=== PATIENT | male | born 1955 | race Two or more races ===

== ENCOUNTER 2025-04-24 11:41 | Inpatient (IN) | payer OTHER ==
[~2025-04-24] VITALS: Ht 165.1 cm; Wt 98.4 kg
--- NOTE | 2025-04-24 12:24 | ECG ---
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
--- NOTE | 2025-04-24 12:26 | ED.PDOC ---
History of Present Illness HPI Comments 69y F who presents to the ED for chief complaint of multiple complaints. Pt states he has been having elevated blood sugar values at home despite being complaint with his DM medications. Pt states he checked his accu check today and notes it was 289 and came to the ED. Pt in the ED, has been having chest pain for the past 1-2 week. Pt states the pain is located center of chest but favoring the L side of chest, pressure like pain, non-radiating, with no associated exacerbating or relieving factors. Pt has associated chills but otherwise denies any other symptoms. Pt otherwise states he is from [place] and is here for and states he has been taking his DM medications. Pt did state his PCP changed his DM medications 2 months prior due to prior medications causing side effects. Pt otherwise has accu check of 289 in the ED. Pt otherwise denies any other symptoms at this time. Chief Complaint: Hyperglycemia Time Seen by MD: 12:23 Reviewed Notes: Nurses Notes, Medications, Allergies Allergies: Coded Allergies: NO KNOWN ALLERGIES (Unverified , 04/24/25) Information Source: Patient Mode of Arrival: Ambulatory Severity: Moderate Timing: Hours Duration: Since onset Prehospital treatment: Treatment (DM medications) Medication Refill: For: Diabetes Past Medical History PAST MEDICAL HISTORY: DM, High Lipids, HTN Surgical History: Hernia Repair Family History Family History: Family hx of DM, Family hx of heart saleem Social History Smoker: Cigarettes Alcohol: Occasionally Drugs: Denies Drug Use Lives In: Home Constitutional: reports: chills, malaise, weakness; denies: diaphoresis, fatigue, fever, sweats, others EENTM: denies: blurred vision, double vision, ear bleeding, ear discharge, ear drainage, ear pain, ear ringing, eye pain, eye redness, hearing loss, mouth pain, mouth swelling, nasal discharge, nose bleeding, nose congestion, nose pain, photophobia, tearing, throat pain, throat swelling, voice changes, others Respiratory: denies: cough, hemoptysis, orthopnea, SOB at rest, shortness of breath, SOB with excertion, stridor, wheezing, others Cardiovascular: reports: chest pain; denies: dizzy spells, diaphoresis, Dyspnea on exertion, edema, irregular heart beat, left arm pain, lightheadedness, palpitations, PND, syncope, others Gastrointestinal: denies: abdomen distended, abdominal pain, blood streaked bowels, constipated, diarrhea, dysphagia, difficulty swallowing, hematemesis, melena, nausea, poor appetite, poor fluid intake, rectal bleeding, rectal pain, vomiting, others Genitourinary: denies: burning, dysuria, flank pain, frequency, hematuria, incontinence, penile discharge, penile sore, pain, testicle pain, testicle swelling, urgency, others Neurological: denies: dizziness, fainting, headache, left sided numbness, left sided weakness, numbness, paresthesia, pre-existing deficit, right sided numbness, right sided weakness, seizure, speech problems, tingling, tremors, weakness, others Musculoskeletal: denies: back pain, gout, joint pain, joint swelling, muscle pain, muscle stiffness, neck pain, others Integumetry: denies: bruises, change in color, change in hair/nails, dryness, laceration, lesions, lumps, rash, wounds, others Allergic/Immunocompromised: denies: Difficulty Healing, Frequent Infections, Hives, Itching, others Hematologic/Lymphatic: denies: anemia, blood clots, easy bleeding, easy bruising, swollen glands, others Endocrine: reports: excessive thirst; denies: excessive hunger, excessive sweating, excessive urination, flushing, intolerance to cold, intolerance to heat, unexplained weight gain, unexplained weight loss, others Psychiatric: denies: anxiety, bipolar disorder, depression, hopeless, panic disorder, schizophrenia, sleepless, suicidal, others All Other Systems: Reviewed and Negative Physical Exam General Appearance: Moderate Distress HEENT: Normal ENT Inspection, Pharynx Normal, TMs Normal Neck: Full Range of Motion, Non-Tender, Normal, Normal Inspection Respiratory: Chest Non-Tender, Lungs Clear, No Accessory Muscle Use, No Respiratory Distress, Normal Breath Sounds Cardiovascular: No Edema, No JVD, No Murmur, No Gallop, Tachycardia Breast Exam: Deferred Gastrointestinal: No Organomegaly, Non Tender, No Pulsatile Mass, Normal Bowel Sounds, Soft Genitalia: Deferred Pelvic: Deferred Rectal: Deferred Extremities: No calf tenderness, Normal capillary refill, No pedal edema Musculoskeletal : Apperance: Normal Neurologic: Alert, weaver needle loom II-XII nml as Tested, Motor Weakness, Normal Affect, Normal Mood, No Sensory Deficits Cerebellar Function: Normal Reflexes: Normal Skin: Dry, Normal Color, Warm Lymphatic: No Adenopathy Was a procedure done? Was a procedure done?: No EKG EKG : Pulse Rate (adult): 113 [place]: Normal Cardiac Rhythm: ST Block: None Hypertrophy: LAE ST: Normal Differential Dx Considerations may include: hyperglycemia, DKA, uncontrolled DM, X-Ray, Labs, Meds, VS Vital Signs Date Time Temp Pulse Resp B/P (MAP) Pulse Ox O2 Delivery O2 Flow Rate FiO2 04/24/25 19:44 100.1 104 20 111/62 (78) 91 100.1 04/24/25 16:30 99.5 99 18 91/57 (68) 92 99.5 04/24/25 14:13 104 18 93 Room Air 04/24/25 14:13 100.1 104 18 95/53 (67) 93 100.1 04/24/25 12:26 113 04/24/25 12:11 113 04/24/25 12:07 98.9 120 18 101/49 (66) 92 98.9 Lab Test 04/24/25 17:30 04/24/25 16:30 04/24/25 14:51 04/24/25 13:40 Range/Units Lactic Acid Level 1.6 0.4-2.0 mmol/L Troponin I High Sensitivity 8 9 7 </=54 ng/L White Blood Count 19.6 H 4.4-10.8 10^3/uL Red Blood Count 5.57 4.5-5.90 10^6/uL Hemoglobin 16.4 13.5-17.5 g/dL Hematocrit 49.2 41.0-53.0 % Mean Corpuscular Volume 88.3 80.0-100.0 fL Mean Corpuscular Hemoglobin 29.4 28.0-32.0 pg Mean Corpuscular Hemoglobin Concent 33.3 32.0-36.0 g/dL Red Cell Distribution Width 14.5 H 11.8-14.3 % Platelet Count 233 140-450 10^3/uL Mean Platelet Volume 7.1 6.9-10.8 fL Neutrophils (%) (Auto) 87.7 H 37.0-80.0 % Lymphocytes (%) (Auto) 6.3 L 10.0-50.0 % Monocytes (%) (Auto) 5.5 0.0-12.0 % Eosinophils (%) (Auto) 0.0 0.0-7.0 % Basophils (%) (Auto) 0.5 0.0-2.0 % Neutrophils # (Auto) 17.2 H 1.6-8.6 10 ^3/uL Lymphocytes # (Auto) 1.2 0.4-5.4 10 ^3/uL Monocytes # (Auto) 1.1 0-1.3 10 ^3/uL Eosinophils # (Auto) 0 0-0.8 10 ^3/uL Basophils # (Auto) 0.1 0-0.2 10 ^3/uL Nucleated Red Blood Cells 0.1 % Sodium Level 133 L 136-145 mmol/L Potassium Level 3.7 3.5-5.1 mmol/L Chloride Level 96 L 98-107 mmol/L Carbon Dioxide Level 24 20-31 mmol/L Anion Gap 13 5-15 Blood Urea Nitrogen 37 H 9-23 mg/dL Creatinine 2.16 H 0.700-1.30 mg/dL Glomerular Filtration Rate Calc 33 >90 mL/min BUN/Creatinine Ratio 17.1 10.0-20.0 Serum Glucose 252 H 74-106 mg/dL Calcium Level 8.1 L 8.7-10.4 mg/dL Test 04/24/25 12:07 Range/Units Urine Color Light-orange Yellow Urine Clarity Clear Clear Urine pH 6.0 5.0-9.0 Urine Specific [place] 1.029 1.001-1.035 Urine Protein 2+ H Negative Urine Ketones Trace Negative Urine Blood 2+ H Negative /uL Urine Nitrite Negative Negative Urine Bilirubin Negative Negative Urine Urobilinogen Normal Negative mg/dL Urine Leukocyte Esterase Negative Negative /uL Urine RBC 1 0 - 3 /hpf Urine Microscopic WBC 3 0-3 /HPF Urine Squamous Epithelial Cells Few <5 /hpf Urine Bacteria None seen None Seen /hpf Urine Granular Casts Mod 0 /lpf Urine Mucus Few None Seen Urine Glucose 4+ H Normal mg/dL Current Medications Medications (Trade) Dose Ordered Sig/Monica Route Start Time Stop Time Status Last Admin Sodium Chloride 500 ml @ 500 mls/hr Q1H ONCE IV 04/24/25 12:30 04/24/25 13:29 DC 04/24/25 12:33 Aspirin 162 mg ONCE ONCE PO 04/24/25 12:30 04/24/25 12:31 DC 04/24/25 12:36 Sodium Chloride 1,850 ml @ 1,850 mls/hr ONCE ONCE IV 04/24/25 17:00 04/24/25 17:59 DC 04/24/25 19:55 Ceftriaxone Sodium 50 ml @ 100 mls/hr ONCE ONCE IV 04/24/25 17:00 04/24/25 17:29 DC 04/24/25 19:57 Vancomycin HCl 200 ml @ 200 mls/hr ONCE ONCE IV 04/24/25 17:00 04/24/25 17:59 DC 04/24/25 19:57 EXAM: XY CHEST TWO VIEWS ROUTINE IMPRESSION: Bilateral lung base infiltrates and effusions likely due to multifocal pneumonia. Time of 1ST Reevaluation: 13:05 Reevaluation 1ST: Unchanged Patient Education/Counseling: Diagnosis, Treatment, Prognosis Family Education/Counseling: No Family Present SEPSIS Sepsis Screen Physician Orders Chest Two Views Routine (04/24/25 12:21) Heplock Iv (04/24/25 12:21) Marklogic Developer (04/24/25 12:21) Blood Pressure (04/24/25 12:21) Pulse Oximetry (04/24/25 12:21) Electrocardigram (04/24/25 13:21) Electrocardigram (04/24/25 15:21) Blood Culture (04/24/25 16:56) Vital Signs Date Time Temp Pulse Resp B/P (MAP) Pulse Ox O2 Delivery O2 Flow Rate FiO2 04/24/25 19:44 100.1 104 20 111/62 (78) 91 100.1 04/24/25 16:30 99.5 99 18 91/57 (68) 92 99.5 04/24/25 14:13 104 18 93 Room Air 04/24/25 14:13 100.1 104 18 95/53 (67) 93 100.1 04/24/25 12:26 113 04/24/25 12:11 113 04/24/25 12:07 98.9 120 18 101/49 (66) 92 98.9 Laboratory Tests Test 04/24/25 13:40 04/24/25 17:30 White Blood Count 19.6 10^3/uL (4.4-10.8) H Lactic Acid Level 1.6 mmol/L (0.4-2.0) Medications Medications Dose Ordered Sig/Monica Route Start Time Stop Time Status Last Admin Dose Admin Aspirin 162 mg ONCE ONCE PO 04/24/25 12:30 04/24/25 12:31 DC 04/24/25 12:36 Ceftriaxone Sodium 50 ml @ 100 mls/hr ONCE ONCE IV 04/24/25 17:00 04/24/25 17:29 DC 04/24/25 19:57 Sodium Chloride 500 ml @ 500 mls/hr Q1H ONCE IV 04/24/25 12:30 04/24/25 13:29 DC 04/24/25 12:33 Sodium Chloride 1,850 ml @ 1,850 mls/hr ONCE ONCE IV 04/24/25 17:00 04/24/25 17:59 DC 04/24/25 19:55 Vancomycin HCl 200 ml @ 200 mls/hr ONCE ONCE IV 04/24/25 17:00 04/24/25 17:59 DC 04/24/25 19:57 Departure 1 Departure Time of Disposition: 20:59 Impression: Primary Impression: Uncontrolled diabetes mellitus Qualified Codes: E13.65 - Other specified diabetes mellitus with hyperglycemia Disposition: ADMITTED INPATIENT Admit to: Tele Condition: Fair Critical Care Note Critical Care Time?: No Stability Stability form required: Yes Unstable for transfer: Telemetry monitoring (Telemetry monitoring required), ED Physician Assesment (Clinical assesment) Heart Score Heart Score: Heart Score Response (Comments) Value History Slightly Suspicious 0 EKG Normal 0 Age >65 2 Risk Factors >3 or Hx ASHD 2 Troponin N/A 0 Total 4 I personally scribed for JENN HERNÁNDEZ MD ([email or web address]) on 04/24/25 at 12:26. Electronically submitted by Erika Matta ([facility]). I personally scribed for JENN HERNÁNDEZ MD ([email or web address]) on 04/24/25 at 13:41. Electronically submitted by Erika Matta ([facility] [place]). JENN HERNÁNDEZ MD Apr 24, 2025 12:26
[2025-04-24] MEDS: SODIUM CHLORIDE 0.9% 500 ML IV ONE (12:33)
--- NOTE | 2025-04-24 13:28 | DVH ---
EXAM: XY CHEST TWO VIEWS ROUTINE HISTORY: CP COMPARISON: None TECHNIQUE: Frontal and lateral views of the chest were performed. FINDINGS: There are bilateral lung base infiltrates and effusions. No pneumothorax or pulmonary edema. Cardiac margins are obscured. No fractures are identified about the bony thorax. IMPRESSION: Bilateral lung base infiltrates and effusions likely due to multifocal pneumonia.
[2025-04-24 13:37] LABS: Urine Protein, UAD 2+ (Negative)
[2025-04-24 13:56] LABS: Hematocrit 49.2 % (41.0-53.0); Hemoglobin 16.4 g/dL (13.5-17.5); Mean Corpuscular Hemoglobin 29.4 pg (28.0-32.0); Mean Corpuscular Volume 88.3 fL (80.0-100.0); Nucleated Red Blood Cells % 0.1 %
[2025-04-24 13:59] LABS: Potassium 3.7 mmol/L (3.5-5.1)
[2025-04-24 14:00] LABS: Anion Gap 13 (5-15); Calcium 8.1 mg/dL (8.7-10.4); Carbon Dioxide 24 mmol/L (20-31); Chloride 96 mmol/L (98-107); Sodium 133 mmol/L (136-145)
[2025-04-24 14:05] LABS: BUN/Creatinine Ratio 17.1 (10.0-20.0)
[2025-04-24 14:06] LABS: Blood Urea Nitrogen 37 mg/dL (9-23); Glucose 252 mg/dL (74-106)
[2025-04-24] MEDS: SODIUM CHLORIDE 0.9% 1,850 ML IV ONE (19:55)
[2025-04-24] MEDS: cefTRIAXone 1GM/50ML D5W 50 ML IV ONE (19:57)
[2025-04-24] MEDS: VANCOMYCIN 1GM/200ML PM 200 ML IV ONE (19:57)
[2025-04-24] MEDS ORDERED: ONDANSETRON HCL 4 MG/2 ML VIAL IV PRN (21:30)
[2025-04-24] MEDS ORDERED: DEXTROSE (50%) 50ML SYRG IV PRN (21:30)
--- NOTE | 2025-04-24 21:36 | DVHHP2 ---
History of Present Illness Reason for Visit: Shortness of breaths History of Present Illness 69-year-old male presents for evaluation of shortness for breath. Patient reports a one-week history of worsening shortness for breath with associated productive cough with yellow phlegm. He also reports his blood sugars being erratic but for the most part they have been greater than 300. Reports intermittent chills. No chest pain. No other acute complaints reported. Past Medical History Diabetes mellitus, dyslipidemia, hypertension Past Surgical History Hernia repair Family History Heart disease and diabetes mellitus Smoke: <1 pack per day ALCOHOL: occassional Drugs: None Lives: with Family Review of Systems Review of Systems Review of systems are currently negative otherwise addressed in HPI. Allergies: Coded Allergies: NO KNOWN ALLERGIES (Unverified , 04/24/25) Exam Vital Signs Vital Signs Date Time Temp Pulse Resp B/P (MAP) Pulse Ox O2 Delivery O2 Flow Rate FiO2 04/24/25 20:15 Nasal Cannula* 2 28 04/24/25 19:44 100.1 104 20 111/62 (78) 91 100.1 Exam Gen: 69-year-old male in mild distress Skin: Warm, dry, normal color and texture, no rash. HEENT: Normocephalic atraumatic, mucous membranes moist and pink. Neck: Cervical and supraclavicular nodes normal without enlargement, trachea is midline, thyroid gland is normal without masses. Pulmonary: Clear to auscultation and percussion bilaterally. Cardiac: Regular rate and rhythm. No murmur Abdomen: Soft, nontender, nondistended, bowel sounds present all 4 quadrants, no guarding, no rigidity, no organomegaly. Extremities: No cyanosis, clubbing, no edema Neuro: Cranial nerves II through XII grossly intact, normal affect and speech, no focal motor deficits. Labs/Xrays ORDERING PHYSICIAN: JENN HERNÁNDEZ MD PROCEDURE(s): CXR2 - CHEST TWO VIEWS ROUTINE REASON: CP ORDER NUMBER(s): [id number], ACCESSION NUMBER(s): [id number] EXAM: XY CHEST TWO VIEWS ROUTINE HISTORY: CP COMPARISON: None TECHNIQUE: Frontal and lateral views of the chest were performed. FINDINGS: There are bilateral lung base infiltrates and effusions. No pneumothorax or p ulmonary edema. Cardiac margins are obscured. No fractures are identified about the bony thorax. IMPRESSION: Bilateral lung base infiltrates and effusions likely due to multifocal pneumonia. Labs Test 04/24/25 17:30 04/24/25 16:30 04/24/25 13:40 04/24/25 12:07 Range/Units Lactic Acid Level 1.6 0.4-2.0 mmol/L Troponin I High Sensitivity 8 </=54 ng/L White Blood Count 19.6 H 4.4-10.8 10^3/uL Red Blood Count 5.57 4.5-5.90 10^6/uL Hemoglobin 16.4 13.5-17.5 g/dL Hematocrit 49.2 41.0-53.0 % Mean Corpuscular Volume 88.3 80.0-100.0 fL Mean Corpuscular Hemoglobin 29.4 28.0-32.0 pg Mean Corpuscular Hemoglobin Concent 33.3 32.0-36.0 g/dL Red Cell Distribution Width 14.5 H 11.8-14.3 % Platelet Count 233 140-450 10^3/uL Mean Platelet Volume 7.1 6.9-10.8 fL Neutrophils (%) (Auto) 87.7 H 37.0-80.0 % Lymphocytes (%) (Auto) 6.3 L 10.0-50.0 % Monocytes (%) (Auto) 5.5 0.0-12.0 % Eosinophils (%) (Auto) 0.0 0.0-7.0 % Basophils (%) (Auto) 0.5 0.0-2.0 % Neutrophils # (Auto) 17.2 H 1.6-8.6 10 ^3/uL Lymphocytes # (Auto) 1.2 0.4-5.4 10 ^3/uL Monocytes # (Auto) 1.1 0-1.3 10 ^3/uL Eosinophils # (Auto) 0 0-0.8 10 ^3/uL Basophils # (Auto) 0.1 0-0.2 10 ^3/uL Nucleated Red Blood Cells 0.1 % Sodium Level 133 L 136-145 mmol/L Potassium Level 3.7 3.5-5.1 mmol/L Chloride Level 96 L 98-107 mmol/L Carbon Dioxide Level 24 20-31 mmol/L Anion Gap 13 5-15 Blood Urea Nitrogen 37 H 9-23 mg/dL Creatinine 2.16 H 0.700-1.30 mg/dL Glomerular Filtration Rate Calc 33 >90 mL/min BUN/Creatinine Ratio 17.1 10.0-20.0 Serum Glucose 252 H 74-106 mg/dL Calcium Level 8.1 L 8.7-10.4 mg/dL Urine Color Light-orange Yellow Urine Clarity Clear Clear Urine pH 6.0 5.0-9.0 Urine Specific [place] 1.029 1.001-1.035 Urine Protein 2+ H Negative Urine Ketones Trace Negative Urine Blood 2+ H Negative /uL Urine Nitrite Negative Negative Urine Bilirubin Negative Negative Urine Urobilinogen Normal Negative mg/dL Urine Leukocyte Esterase Negative Negative /uL Urine RBC 1 0 - 3 /hpf Urine Microscopic WBC 3 0-3 /HPF Urine Squamous Epithelial Cells Few <5 /hpf Urine Bacteria None seen None Seen /hpf Urine Granular Casts Mod 0 /lpf Urine Mucus Few None Seen Urine Glucose 4+ H Normal mg/dL Assessment/Plan Assessment/Plan Assessment Multifocal pneumonia Chronic kidney disease Diabetes mellitus, uncontrolled Hypertension Plan Admit the patient to Med surge to the hospitalist Rocephin/azithromycin Med nebs Resume home medications Continue treatment per orders. Plan discussed with: Patient My Orders Orders - JARAD HENDERSON Procedure Category Date Status Time Admit ADMIT 04/24/25 Transmitted 19:52 Ceftriaxone Ivpb PHA 04/25/25 Verified Rocephin 09:00 Azithromycin 500mg/ PHA 04/25/25 Verified 250ml (Zithromax 50 10:00 Nifedipine Er PHA 04/25/25 Verified (Procardia Xl 10:00 Atorvastatin (Lipitor) PHA 04/24/25 Verified 22:00 Basic Metabolic Panel LAB 04/25/25 Verified 04:00 Glucose Blood PHA 04/25/25 Verified (Accu-Chek Comfort 00:00 Mild Sliding Scale PHA 04/25/25 Verified Npo - Q6hr 00:00 Dextrose 50% Syringe PHA 04/24/25 Verified 21:30 Renal DIET 04/25/25 Verified Standard(2gna,3gk,Lopho) Breakfast Ondansetron Hcl PHA 04/24/25 Verified (Zofran) 21:30 Complete Blood Count LAB 04/25/25 Verified 04:00 Condition: Stable UMANG 04/24/25 Verified 21:29 Acetaminophen Tablet PHA 04/24/25 Verified (Tylenol Tablet) 21:30 Bedrest With Bathroom UMANG 04/24/25 Verified Privileg 21:29 Date of Service: Apr 24, 2025 Billing Provider: JARAD HENDERSON Common Visit Codes: [id number] INP/OBS CARE (HIGH) JARAD HENDERSON Apr 24, 2025 21:36
[2025-04-24] MEDS ORDERED: ALBUTEROL SULF 2.5 MG/0.5ML(0.5%) NEB SOLN NEB PRN (21:45)
[2025-04-24 22:11] VITALS: BP 111/62; PULSE 99; RESP 20; TEMP 100.1; O2SAT 93
[2025-04-24 22:17] VITALS: BP 119/68; PULSE 97; RESP 18; TEMP 98.2; O2SAT 95
[2025-04-24 22:21] VITALS: BP 119/68; PULSE 94; RESP 18; TEMP 98.2; O2SAT 94
[2025-04-24 22:40] VITALS: BP 119/68; PULSE 94; RESP 18; TEMP 98.2; O2SAT 94
[2025-04-24] MEDS: ACCU-CHEK COMFORT CURVE STRIP VI SCH (23:17)
[2025-04-24] MEDS: InsuLIN REG 1unit/0.01ml Soln (100units/ml) SC SCH (23:17)
[2025-04-24] MEDS: ATORVASTATIN 20 MG TAB PO SCH (23:17)
[2025-04-24 23:30] VITALS: O2SAT 94
[2025-04-25] VITALS (7 sets, daily range): BP systolic 103–144; BP diastolic 58–85; PULSE 97–115; RESP 18–22; TEMP 95.8–99.9; O2SAT 91–100
[2025-04-25 06:48] LABS: Hematocrit 47.5 % (41.0-53.0); Hemoglobin 16.0 g/dL (13.5-17.5); Mean Corpuscular Hemoglobin 29.6 pg (28.0-32.0); Mean Corpuscular Volume 87.8 fL (80.0-100.0); Nucleated Red Blood Cells % 0.0 %
[2025-04-25 07:03] LABS: Anion Gap 12 (5-15); Carbon Dioxide 27 mmol/L (20-31); Sodium 136 mmol/L (136-145)
[2025-04-25 07:09] LABS: BUN/Creatinine Ratio 22.1 (10.0-20.0)
[2025-04-25 07:18] LABS: Blood Urea Nitrogen 36 mg/dL (9-23); Calcium 8.6 mg/dL (8.7-10.4); Chloride 97 mmol/L (98-107); Glucose 177 mg/dL (74-106); Potassium 3.0 mmol/L (3.5-5.1)
[2025-04-25] MEDS: cefTRIAXone 1GM/50ML D5W 50 ML IV SCH (09:12)
[2025-04-25] MEDS: AZITHROMYCIN 500MG/ 250ML 250 ML IV SCH (09:13)
[2025-04-25] MEDS: ENOXAPARIN SOD 40 MG/0.4 ML SYRINGE SC SCH (09:13)
[2025-04-25] MEDS: SODIUM CHLORIDE 0.9% 500 ML IV ONE (09:17)
[2025-04-25] MEDS: POTASSIUM CHL 20 Meq TABLET PO ONE (09:26)
[2025-04-25 13:07] LABS: COVID19 ANTIGEN SOFIA FIA NEGATIVE (NEGATIVE)
[2025-04-25] MEDS: ACETAMINOPHEN 325 MG TAB PO PRN (13:29)
--- NOTE | 2025-04-25 17:53 | DVHPNRES ---
Progress Note Date Seen: Apr 25, 2025 Resident Creating Document: ISHA PETERSON RESIDENT Has the PT tested + for MRSA If YES, has PT been informed?: No Medical Necessity Reason Pt with a Central, PICC or Fol: No Subjective Review of Systems Patient is a 69-year-old male with prior medical history of type 2 diabetes, hypertension, and dyslipidemia, who presented to the ED with chief complaint of elevated blood sugar. Patient stated [place] and and has been in the area for the last 2 months due to a family crisis and for this reason has not been able to see his PCP for management. In the ED, patient began to complain of chest pain, located in center of chest, pressure like pain, non-radiating, with no associated exacerbating or relieving factors. At this time patient stated that for the last 2 weeks he has presented shortness of breath with minimal activity, generalized body aches, malaise, cough, febrile sensation and chills. He denied other symptoms. On evaluation patient was found to be in mild distress, tachycardic and febrile. Twelve lead EKG in ED positives were sinus tachycardia and troponins negative. Labs Show WBC at 19.6, lactic acid at 1.6, and serum glucose at 255. Chest x-ray shows lung base infiltrates and effusions likely due to multifocal pneumonia. Patient admitted for further monitoring and antibiotic treatment. Patient seen at bedside. Patient states that he is feeling better, but still refers dizziness upon standing, general malaise, chest pain and decreased appetite. Currently denies fever and chills. He has not had a bowel movement the last 2 days. Currently on 3 L oxygen. WBCs post initiation of treatment have decreased to 16.8. This morning patient was found to be hypokalemic with potassium at 3, replenished with p.o. potassium with potassium now at 3.6. Review of systems Constitutional: Refers decreased appetite, general malaise, denies fever and chills HEENT: Denies changes in vision and hearing. Respiratory: Refers shortness of breath and cough Cardiovascular: Refers chest pain GI: Denies abdominal distention and discomfort : Denies dysuria and urinary frequency. Musculoskeletal: Refers generalized body aches Skin: Denies rash and pruritus. Neurological: Refers dizziness upon standing, denies headache Objective vital signs Vital Sign Date Time Temp Pulse Resp B/P (MAP) Pulse Ox O2 Delivery O2 Flow Rate FiO2 04/25/25 16:43 99.0 97 20 117/73 (88) 91 99.0 04/25/25 08:05 Nasal Cannula* 3 32 Total Intake and Output 04/24/25 04/24/25 04/25/25 15:00 23:00 07:00 Intake Total 500 ml 120 ml Balance 500 ml 120 ml medications Current Medications Medications Dose Ordered Sig/Monica Route Start Time Stop Time Status Last Admin Dose Admin Ceftriaxone Sodium 50 ml @ 100 mls/hr DAILY@09 IV 04/25/25 09:00 04/25/25 09:12 100 MLS/HR Azithromycin 250 ml @ 125 mls/hr DAILY IV 04/25/25 10:00 04/25/25 09:13 125 MLS/HR Nifedipine 60 mg DAILY PO 04/25/25 10:00 04/25/25 09:13 60 MG Atorvastatin Calcium 40 mg HS PO 04/24/25 22:00 04/24/25 23:17 40 MG Diagnostic Test (Pha) 1 strip Q6HR 04/25/25 00:00 04/25/25 12:00 1 STRIP Insulin Human Regular Q6HR SC 04/25/25 00:00 04/25/25 12:41 4 UNITS Dextrose 50 ml UD PRN IV 04/24/25 21:30 Ondansetron HCl 4 mg Q4HP PRN IV 04/24/25 21:30 Acetaminophen 650 mg Q6HP PRN PO 04/24/25 21:30 04/25/25 13:29 650 MG Albuterol 2.5 mg Q6HPRN PRN NEB 04/24/25 21:45 Enoxaparin Sodium 40 mg DAILY SC 04/25/25 10:00 04/25/25 09:13 40 MG Insulin Glargine 10 units HS SC 04/25/25 22:00 Examination General: The patient alert and oriented in person place and time. Patient following commands HEENT: Normocephalic a, atraumatic, moist mucous membrane Respiratory/pulmonary: Clear lungs bilaterally, vesicular murmurs present in almost all lung beck, no associated crackles or wheezes. Chest: Pain on palpation Abdomen: Abdomen nondistended, there is no pain to palpation in any of the abdominal quadrants, no palpable masses. Extremities: there is no peripheral edema present at the lower extremities. Peripheral pulses 3+ radial right, 3+ radials soft. 3+ dorsalis pedis right. 3+ dorsalis pedis left Skin: No rashes or pruritus. Neurological: Intact cranial nerves with no focal neurologic deficits laboratory and microbiology Laboratory Tests 04/25/25 14:00 04/25/25 05:27 Test 04/25/25 05:27 Range/Units Serum Glucose 177 H 74-106 mg/dL Microbiology Date/Time Source Procedure Growth Status 04/24/25 17:30 Blood Blood Culture - Preliminary Resulted Problem List/Assessment/Plan Problem List/Assessment/Plan Pneumonia, likely gram positive/Gram-negative Leukocytosis secondary to above -started on azithromycin IV and ceftriaxone IV -blood cultures pending -chest x-ray: Bilateral lung base infiltrates and effusions likely due to multifocal pneumonia. -COVID negative Acute hypoxic respiratory failure -3 L of oxygen nasal cannula Uncontrolled type 2 diabetes with hyperglycemia, HbA1c: 7.8 -SSI -diabetic diet Hypertension -continue home medications Hypokalemia -p.o. Potassium DVT prophylaxis with Lovenox. Case discussed with Dr. Field. Case discussed with patient, who refers understanding of current diagnosis and plan. Full code. Plan discussed with: Patient Date of Service: Apr 25, 2025 Billing Provider: RAMONA FIELD MD Common Visit Codes: [id number] INP/OBS CARE(HIGH) ISHA PETERSON RESIDENT Apr 25, 2025 17:53 RAMONA FIELD MD Apr 26, 2025 12:28
[2025-04-25] MEDS: INSULIN LANTUS (GLARGINE) 1 /0.01ml (100units/ml) SC SCH (22:00)
[2025-04-26] VITALS (11 sets, daily range): BP systolic 110–132; BP diastolic 63–78; PULSE 56–108; RESP 16–24; TEMP 96.3–98.6; O2SAT 90–99
[2025-04-26] MEDS: OXYCODONE W/ ACETAMINOPHEN 5/325MG TABLET PO ONE (00:12)
[2025-04-26 06:19] LABS: Chloride 99 mmol/L (98-107); Sodium 137 mmol/L (136-145)
[2025-04-26 06:20] LABS: Anion Gap 11 (5-15); Carbon Dioxide 27 mmol/L (20-31)
[2025-04-26 06:25] LABS: BUN/Creatinine Ratio 23.1 (10.0-20.0)
[2025-04-26 06:27] LABS: Blood Urea Nitrogen 24 mg/dL (9-23); Calcium 8.3 mg/dL (8.7-10.4); Glucose 141 mg/dL (74-106); Potassium 3.4 mmol/L (3.5-5.1)
[2025-04-26 06:33] LABS: Hematocrit 44.3 % (41.0-53.0); Hemoglobin 15.0 g/dL (13.5-17.5); Mean Corpuscular Hemoglobin 29.8 pg (28.0-32.0); Mean Corpuscular Volume 87.8 fL (80.0-100.0); Nucleated Red Blood Cells % 0.0 %
[2025-04-26] MEDS: POTASSIUM EFFERVESENT TAB 25 MEQ PO ONE (06:45)
[2025-04-26] MEDS: IPRATROPIUM BROM 0.5 MG/2.5ML INH SOL NEB ONE (08:40)
[2025-04-26] MEDS: ALBUTEROL SULF 2.5 MG/0.5ML(0.5%) NEB SOLN NEB ONE (08:41)
[2025-04-26] MEDS: DOXYCYCLINE 100MG/100ML 100 ML IV SCH (08:58)
[2025-04-26] MEDS: IBUPROFEN 400 MG TAB PO ONE (09:05)
[2025-04-26] MEDS ORDERED: VANCOMYCIN PER PHARMACY 0 MG IV SCH (10:15)
[2025-04-26] MEDS: VANCOMYCIN 1GM/250ML KIT 250 ML IV SCH ×2 (11:41→22:50)
--- NOTE | 2025-04-26 11:55 | DVHPNRES ---
Progress Note Date Seen: Apr 26, 2025 Resident Creating Document: ISHA PETERSON RESIDENT Has the PT tested + for MRSA If YES, has PT been informed?: Yes Medical Necessity Reason Pt with a Central, PICC or Fol: No Subjective Review of Systems Patient is a 69-year-old male with prior medical history of type 2 diabetes, hypertension, and dyslipidemia, who presented to the ED with chief complaint of elevated blood sugar. Patient stated [place] and and has been in the area for the last 2 months due to a family crisis and for this reason has not been able to see his PCP for management. In the ED, patient began to complain of chest pain, located in center of chest, pressure like pain, non-radiating, with no associated exacerbating or relieving factors. At this time patient stated that for the last 2 weeks he has presented shortness of breath with minimal activity, generalized body aches, malaise, cough, febrile sensation and chills. He denied other symptoms. On evaluation patient was found to be in mild distress, tachycardic and febrile. Twelve lead EKG in ED positives were sinus tachycardia and troponins negative. Labs Show WBC at 19.6, lactic acid at 1.6, and serum glucose at 255. Chest x-ray shows lung base infiltrates and effusions likely due to multifocal pneumonia. Patient admitted for further monitoring and antibiotic treatment. Patient seen at bedside. Patient refers persistent body aches, shortness of breath without improvement, cough, and improved appetite. Currently denies fever, chills, and dizziness. States he is not currently moving around his room too much due to shortness of breath, despite being on 3 L of oxygen via nasal cannula. Patient was evaluated by respiratory therapy this morning, and at the time he did not have indication for breathing therapy. However, per nurse, patient was saturating 89% while eating his breakfast. Due to this oxygen decreased to 4 L via nasal cannula and breathing treatments were started. Review of Systems: Constitutional: States improved appetite and generalized body aches, Denies weight loss, fever and chills. HEENT: Denies changes in vision and hearing. Respiratory: Refers shortness of breath and cough Cardiovascular: Denies chest discomfort or palpitations GI: Denies abdominal distension and abdominal discomfort. : Denies dysuria and urinary frequency. Musculoskeletal: Refers generalized body aches Skin: Denies rash and pruritus. Neurological: denies dizziness headache vision or hearing problems Objective vital signs Vital Sign Date Time Temp Pulse Resp B/P (MAP) Pulse Ox O2 Delivery O2 Flow Rate FiO2 04/26/25 09:04 110/78 04/26/25 09:00 98.4 108 22 90 98.4 04/26/25 08:41 Nasal Cannula 3.0 04/26/25 08:41 32 Total Intake and Output 04/25/25 04/25/25 04/26/25 15:00 23:00 07:00 Intake Total 850 ml 500 ml 800 ml Balance 850 ml 500 ml 800 ml medications Current Medications Medications Dose Ordered Sig/Monica Route Start Time Stop Time Status Last Admin Dose Admin Ceftriaxone Sodium 50 ml @ 100 mls/hr DAILY@09 IV 04/25/25 09:00 04/26/25 08:55 100 MLS/HR Nifedipine 60 mg DAILY PO 04/25/25 10:00 04/26/25 09:04 60 MG Atorvastatin Calcium 40 mg HS PO 04/24/25 22:00 04/25/25 22:08 40 MG Diagnostic Test (Pha) 1 strip Q6HR 04/25/25 00:00 04/26/25 05:30 1 STRIP Insulin Human Regular Q6HR SC 04/25/25 00:00 04/26/25 06:28 3 UNITS Dextrose 50 ml UD PRN IV 04/24/25 21:30 Ondansetron HCl 4 mg Q4HP PRN IV 04/24/25 21:30 Acetaminophen 650 mg Q6HP PRN PO 04/24/25 21:30 04/25/25 13:29 650 MG Enoxaparin Sodium 40 mg DAILY SC 04/25/25 10:00 04/26/25 08:58 40 MG Insulin Glargine 10 units HS SC 04/25/25 22:00 04/25/25 22:00 10 UNITS Albuterol 2.5 mg Q6HPRN PRN NEB 04/26/25 08:30 Ipratropium [place] 0.5 mg Q6HPRN PRN NEB 04/26/25 08:30 Vancomycin HCl 0 ml @ 0 mls/hr UD IV 04/26/25 10:15 Vancomycin HCl 250 ml @ 250 mls/hr Q1H IV 04/26/25 10:30 04/26/25 12:29 04/26/25 11:41 250 MLS/HR Examination General: The patient alert and oriented in person place and time. Patient following commands HEENT: Normocephalic a, atraumatic, moist mucous membrane Respiratory/pulmonary: Clear lungs bilaterally, vesicular murmurs present in almost all lung beck, no associated crackles or wheezes. Chest: Pain on palpation Cardiovascular: Normal rate, normal S1, normal S2 Abdomen: Abdomen nondistended, there is no pain to palpation in any of the abdominal quadrants, no palpable masses. Extremities: there is no peripheral edema present at the lower extremities. Peripheral pulses 3+ radial right, 3+ radials soft. 3+ dorsalis pedis right. 3+ dorsalis pedis left Skin: No rashes or pruritus. Neurological: Intact cranial nerves with no focal neurologic deficits laboratory and microbiology Laboratory Tests 04/26/25 05:34 Test 04/26/25 05:34 Range/Units Serum Glucose 141 H 74-106 mg/dL Microbiology Date/Time Source Procedure Growth Status 04/24/25 17:30 Blood Blood Culture - Preliminary Resulted Problem List/Assessment/Plan Problem List/Assessment/Plan Assessment and plan: Pneumonia, likely gram positive/Gram-negative Sepsis, secondary to pneumonia Leukocytosis, secondary to above -Blood cultures: Preliminary: Growth of coagulase negative Staphylococcus -Vancomycin IV initiated q4h -Ceftriaxone IV -Azithromycin IV discontinued -Chest x-ray: Bilateral lung base infiltrates and effusions likely due to multifocal pneumonia. -COVID negative -MRSA + Nare Swab --Mupirocin ointment bid Acute hypoxic respiratory failure -4 L of oxygen nasal cannula -Ipratropium bromide nebulization q.6 hours p.r.n. Acute Chest pain, likely due to pneumonia -Ibuprofen p.o. 400 mg Uncontrolled type 2 diabetes with hyperglycemia, HbA1c: 7.8 -Lantus 10 units -SSI -diabetic diet Hypertension -continue home medications Hypokalemia -Potassium p.o. 25 mEq DVT prophylaxis with Lovenox. Case discussed with Dr. Field. Goals of care discussed with patient for 25 minutes, who refers understanding of current diagnosis and plan. Full code. Plan discussed with: Patient My Orders My Orders Orders - ISHA PETERSON Procedure Category Date Status Time Consistent DIET 04/26/25 [facility]mitted [facility]Diabetes Breakfast Date of Service: Apr 26, 2025 Billing Provider: RAMONA FIELD MD Common Visit Codes: [id number] INP/OBS CARE(HIGH) ISHA PETERSON RESIDENT Apr 26, 2025 11:55 RAMONA FIELD MD Apr 27, 2025 16:45
[2025-04-26] MEDS: ALBUTEROL SULF 2.5 MG/0.5ML(0.5%) NEB SOLN NEB PRN (18:48)
[2025-04-26] MEDS: IPRATROPIUM BROM 0.5 MG/2.5ML INH SOL NEB PRN (18:49)
[2025-04-26] MEDS: MUPIROCIN 2% OINT 15gm or 22gm FOR MRSA NARES EACHNOSTRI SCH (21:50)
[2025-04-26] MEDS: VANCOMYCIN 1GM/200ML PM 200 ML IV ONE (22:44)
[2025-04-27] VITALS (11 sets, daily range): BP systolic 117–146; BP diastolic 69–97; PULSE 74–103; RESP 16–22; TEMP 96.3–99.7; O2SAT 92–99
[2025-04-27 08:44] LABS: Hematocrit 39.3 % (41.0-53.0); Hemoglobin 13.3 g/dL (13.5-17.5); Mean Corpuscular Hemoglobin 29.6 pg (28.0-32.0); Mean Corpuscular Volume 87.6 fL (80.0-100.0); Nucleated Red Blood Cells % 0.0 %
[2025-04-27 08:47] LABS: Chloride 100 mmol/L (98-107)
[2025-04-27 08:48] LABS: Anion Gap 12 (5-15); Calcium 8.9 mg/dL (8.7-10.4); Carbon Dioxide 23 mmol/L (20-31)
[2025-04-27 08:53] LABS: BUN/Creatinine Ratio 16.5 (10.0-20.0); Blood Urea Nitrogen 17 mg/dL (9-23); Glucose 128 mg/dL (74-106); Potassium 3.1 mmol/L (3.5-5.1); Sodium 135 mmol/L (136-145)
[2025-04-27] MEDS: POLYETHYLENE GLYCOL 17 GM PWDR PO ONE (09:15)
--- NOTE | 2025-04-27 09:31 | DVHPNRES ---
Progress Note Date Seen: Apr 27, 2025 Resident Creating Document: ISHA PETERSON RESIDENT Has the PT tested + for MRSA If YES, has PT been informed?: Yes Medical Necessity Reason Pt with a Central, PICC or Fol: No Subjective Review of Systems Patient is a 69-year-old male with prior medical history of type 2 diabetes, hypertension, and dyslipidemia, who presented to the ED with chief complaint of elevated blood sugar. Patient stated that [place] and and has been in the area for the last 2 months due to a family crisis and for this reason has not been able to see his PCP for management. In the ED, patient began to complain of chest pain, located in center of chest, pressure like pain, non-radiating, with no associated exacerbating or relieving factors. At this time patient stated that for the last 2 weeks he has presented shortness of breath with minimal activity, generalized body aches, malaise, cough, febrile sensation and chills. He denied other symptoms. On evaluation patient was found to be in mild distress, tachycardic and febrile. Twelve lead EKG in ED positives were sinus tachycardia and troponins negative. Labs Show WBC at 19.6, lactic acid at 1.6, and serum glucose at 255. Chest x-ray shows lung base infiltrates and effusions likely due to multifocal pneumonia. Patient admitted for further monitoring and antibiotic treatment. Patient seen at bedside. He states he is feeling better and has improved appetite. However, he still has generalized body aches, specifically in his chest, which are not letting him sleep. Additionally, refers some shortness of breath when sitting up, dizziness upon standing, cough with minor expectoration, and constipation. Currently denies fever, chills, dictation, nausea, and vomiting. Yesterday patient was on 4 L of oxygen today, patient has been lowered to 1L of oxygen and is tolerating. He was advised to start moving around his room as tolerated. Review of systems: Constitutional: States improved appetite, Denies weight loss, fever and chills. HEENT: Denies changes in vision and hearing. Respiratory: Refers shortness of breath and cough Cardiovascular: Refers chest discomfort, denies palpitations GI: Denies abdominal distension and abdominal discomfort. : Denies dysuria and urinary frequency. Musculoskeletal: Refers generalized body aches Skin: Denies rash and pruritus. Neurological: refers dizziness upon standing, denies headache, vision or hearing problems Objective vital signs Vital Sign Date Time Temp Pulse Resp B/P (MAP) Pulse Ox O2 Delivery O2 Flow Rate FiO2 04/27/25 09:02 96 Nasal Cannula 3.0 04/27/25 09:02 90 16 04/27/25 09:02 32 04/27/25 08:39 146/74 04/27/25 05:00 98.8 98.8 Total Intake and Output 04/26/25 04/26/25 04/27/25 15:00 23:00 07:00 Intake Total 50 ml 400 ml 775 ml Balance 50 ml 400 ml 775 ml medications Current Medications Medications Dose Ordered Sig/Monica Route Start Time Stop Time Status Last Admin Dose Admin Ceftriaxone Sodium 50 ml @ 100 mls/hr DAILY@09 IV 04/25/25 09:00 04/27/25 08:39 100 MLS/HR Nifedipine 60 mg DAILY PO 04/25/25 10:00 04/27/25 08:39 60 MG Atorvastatin Calcium 40 mg HS PO 04/24/25 22:00 04/26/25 21:50 40 MG Diagnostic Test (Pha) 1 strip Q6HR 04/25/25 00:00 04/27/25 06:02 1 STRIP Insulin Human Regular Q6HR SC 04/25/25 00:00 04/27/25 06:00 2 UNITS Dextrose 50 ml UD PRN IV 04/24/25 21:30 Ondansetron HCl 4 mg Q4HP PRN IV 04/24/25 21:30 Acetaminophen 650 mg Q6HP PRN PO 04/24/25 21:30 04/27/25 06:34 650 MG Enoxaparin Sodium 40 mg DAILY SC 04/25/25 10:00 04/27/25 08:40 40 MG Insulin Glargine 10 units HS SC 04/25/25 22:00 04/26/25 22:00 10 UNITS Albuterol 2.5 mg Q6HPRN PRN NEB 04/26/25 08:30 04/27/25 09:02 2.5 MG Ipratropium [place] 0.5 mg Q6HPRN PRN NEB 04/26/25 08:30 04/27/25 09:02 0.5 MG Vancomycin HCl 0 ml @ 0 mls/hr UD IV 04/26/25 10:15 Mupirocin 1 applic BID EACHNOSTRI 04/26/25 22:00 05/01/25 21:59 04/27/25 08:40 1 APPLIC Vancomycin HCl 250 ml @ 250 mls/hr Q12H IV 04/26/25 23:00 04/26/25 22:50 250 MLS/HR Examination General: The patient alert and oriented in person place and time. Patient following commands HEENT: Normocephalic, atraumatic, moist mucous membrane Respiratory/pulmonary: Vesicular murmurs present in almost all lung beck, with crackles in bilateral lower lung beck. Chest: Pain on palpation Cardiovascular: Normal rate, normal S1, normal S2 Abdomen: Abdomen nondistended, there is no pain to palpation in any of the abdominal quadrants, no palpable masses. Extremities: there is no peripheral edema present at the lower extremities. Peripheral pulses 3+ radial right, 3+ radials soft. 3+ dorsalis pedis right. 3+ dorsalis pedis left Skin: No rashes or pruritus. Neurological: Intact cranial nerves with no focal neurologic deficits laboratory and microbiology Laboratory Tests 04/27/25 08:02 Test 04/27/25 08:02 Range/Units Serum Glucose 128 H 74-106 mg/dL Microbiology Date/Time Source Procedure Growth Status 04/25/25 09:28 Nose MRSA Screen - Final Methicillin Resistant S.aureus Complete 04/24/25 17:30 Blood Blood Culture - Preliminary Resulted Problem List/Assessment/Plan Problem List/Assessment/Plan Assessment and plan: Pneumonia, likely gram positive/Gram-negative Sepsis, secondary to pneumonia Leukocytosis, secondary to above -Blood cultures: Preliminary: Growth of coagulase negative Staphylococcus -Vancomycin IV 1 g q4h -Ceftriaxone IV -Azithromycin IV discontinued -Chest x-ray: Bilateral lung base infiltrates and effusions likely due to multifocal pneumonia. -COVID negative -MRSA + Nare Swab --Mupirocin ointment in each nare bid -Pending Sputum culture -New blood cultures drawn today Acute hypoxic respiratory failure -1 L of oxygen nasal cannula -Ipratropium bromide nebulization q.6 hours p.r.n. Acute Chest pain, likely due to pneumonia -Ibuprofen p.o. 400 mg q8 prn Uncontrolled type 2 diabetes with hyperglycemia, HbA1c: 7.8 -Lantus 10 units -SSI -diabetic diet Hypertension -continue home medications Hypokalemia -Potassium Effervescent Tablet PO 50 mEq Constipation: -Miralax PO 17 gm powder Obesity: BMI: 36.3 kg/m2 DVT prophylaxis with Lovenox. Case discussed with Dr. Field. Goals of care discussed with patient for 25 minutes, who refers understanding of current diagnosis and plan. Full code. Plan discussed with: Patient My Orders My Orders Orders - ISHA PETERSON RESIDENT Procedure Category Date Status Time Blood Culture AJYLA 04/27/25 In Process 04:00 Mupirocin 2% Oint PHA 04/26/25 In Process Mrsa Nares (Bactroban 22:00 Polyethylene Glycol PHA 04/27/25 Logged 17g Powder (Miralax 09:15 Potassium Effervesent PHA 04/27/25 Logged Tab (Klor-Con/Ef) 09:15 Dietary Evaluation Review Recommendations by RD: Dietary education by RD, Protein Supplementation Comments: 1) Add cardiac restriction to 45g CCHO diet 2) Initiate Glucerna qd. Encourage optimal PO intake 3) Consider stool softener/laxative to promote BM 4) Refer to outpatient RD/CDCES for diabetes education and weight management 5) Follow-up with cardiology, pulmonlology, and nephrology 6) Continue to monitor I&O, labs, and skin integrity Expected Outcomes/Goals: 1) appetite and labs to improve 2) f/u in 3-5 days Date of Service: Apr 27, 2025 Billing Provider: RAOMNA FIELD MD Common Visit Codes: [id number] INP/OBS CARE(HIGH) ISHA PETERSON RESIDENT Apr 27, 2025 09:31 RAMONA FIELD MD Apr 27, 2025 17:00
[2025-04-27] MEDS: IBUPROFEN 400 MG TAB PO ONE (10:12)
[2025-04-27] MEDS: POTASSIUM EFFERVESENT TAB 25 MEQ PO ONE (10:12)
[2025-04-27] MEDS: IBUPROFEN 400 MG TAB PO PRN (15:37)
[2025-04-27] MEDS: VANCOMYCIN 1GM/200ML PM 200 ML IV ONE (22:49)
[2025-04-28] VITALS (9 sets, daily range): BP systolic 119–152; BP diastolic 74–88; PULSE 87–107; RESP 16–20; TEMP 98–99.6; O2SAT 91–94
[2025-04-28] MEDS: PANTOPRAZOLE 40 MG/10 ML VIAL INJ IV ONE (00:37)
[2025-04-28] MEDS: MORPHINE SULFATE INJ 2 MG/ml SYRG IV ONE (00:42)
[2025-04-28 05:59] LABS: Hematocrit 42.1 % (41.0-53.0); Hemoglobin 14.1 g/dL (13.5-17.5); Mean Corpuscular Hemoglobin 29.3 pg (28.0-32.0); Mean Corpuscular Volume 87.5 fL (80.0-100.0); Nucleated Red Blood Cells % 0.0 %
[2025-04-28 06:15] LABS: Anion Gap 13 (5-15); Carbon Dioxide 24 mmol/L (20-31); Chloride 100 mmol/L (98-107); Sodium 137 mmol/L (136-145)
[2025-04-28 06:16] LABS: Calcium 9.3 mg/dL (8.7-10.4)
[2025-04-28 06:21] LABS: BUN/Creatinine Ratio 15.6 (10.0-20.0); Blood Urea Nitrogen 17 mg/dL (9-23)
[2025-04-28 06:22] LABS: Glucose 135 mg/dL (74-106); Potassium 3.5 mmol/L (3.5-5.1)
--- NOTE | 2025-04-28 10:16 | DVHPNRES ---
Progress Note Date Seen: Apr 28, 2025 Resident Creating Document: MARK GALVAN RESIDENT Has the PT tested + for MRSA If YES, has PT been informed?: Yes Medical Necessity Reason Pt with a Central, PICC or Fol: No Subjective Review of Systems Patient is a 69-year-old male with prior medical history of type 2 diabetes, hypertension, and dyslipidemia, who presented to the ED with chief complaint of elevated blood sugar. Patient stated that [place] and and has been in the area for the last 2 months due to a family crisis and for this reason has not been able to see his PCP for management. In the ED, patient began to complain of chest pain, located in center of chest, pressure like pain, non-radiating, with no associated exacerbating or relieving factors. At this time patient stated that for the last 2 weeks he has presented shortness of breath with minimal activity, generalized body aches, malaise, cough, febrile sensation and chills. He denied other symptoms. On evaluation patient was found to be in mild distress, tachycardic and febrile. Twelve lead EKG in ED positives were sinus tachycardia and troponins negative. Labs Show WBC at 19.6, lactic acid at 1.6, and serum glucose at 255. Chest x-ray shows lung base infiltrates and effusions likely due to multifocal pneumonia. Patient admitted for further monitoring and antibiotic treatment. Patient seen at bedside. He reports alert x3, he states that he is feeling better than yesterday. He reports that he slept well and is eating well, additionally he reports mild dizziness, and cough only when he takes a deep breath, denies any headache, fever, chills, nausea, vomiting. Patient is tolerating room air and is able to walk without any shortness of breath. Patient can possibly be discharged tomorrow with Augmentin and Doxycycline. Patient reports: Feels better Objective vital signs Vital Sign Date Time Temp Pulse Resp B/P (MAP) Pulse Ox O2 Delivery O2 Flow Rate FiO2 04/28/25 09:26 134/81 04/28/25 09:00 98.0 91 18 93 98.0 04/27/25 22:09 2.0 28 04/27/25 22:09 Nasal Cannula* Total Intake and Output 04/27/25 04/27/25 04/28/25 15:00 23:00 07:00 Intake Total 300 ml 140 ml 840 ml Balance 300 ml 140 ml 840 ml medications Current Medications Medications Dose Ordered Sig/Monica Route Start Time Stop Time Status Last Admin Dose Admin Ceftriaxone Sodium 50 ml @ 100 mls/hr DAILY@09 IV 04/25/25 09:00 04/28/25 09:24 100 MLS/HR Nifedipine 60 mg DAILY PO 04/25/25 10:00 04/28/25 09:26 60 MG Atorvastatin Calcium 40 mg HS PO 04/24/25 22:00 04/27/25 21:58 40 MG Diagnostic Test (Pha) 1 strip Q6HR 04/25/25 00:00 04/28/25 06:06 1 STRIP Insulin Human Regular Q6HR SC 04/25/25 00:00 04/28/25 06:09 3 UNITS Dextrose 50 ml UD PRN IV 04/24/25 21:30 Ondansetron HCl 4 mg Q4HP PRN IV 04/24/25 21:30 Acetaminophen 650 mg Q6HP PRN PO 04/24/25 21:30 04/27/25 06:34 650 MG Enoxaparin Sodium 40 mg DAILY SC 04/25/25 10:00 04/28/25 09:25 40 MG Insulin Glargine 10 units HS SC 04/25/25 22:00 04/27/25 22:00 10 UNITS Albuterol 2.5 mg Q6HPRN PRN NEB 04/26/25 08:30 04/27/25 16:16 2.5 MG Ipratropium [place] 0.5 mg Q6HPRN PRN NEB 04/26/25 08:30 04/27/25 16:16 0.5 MG Vancomycin HCl 0 ml @ 0 mls/hr UD IV 04/26/25 10:15 Mupirocin 1 applic BID EACHNOSTRI 04/26/25 22:00 05/01/25 21:59 04/28/25 09:27 1 APPLIC Vancomycin HCl 250 ml @ 250 mls/hr Q12H IV 04/26/25 23:00 04/27/25 22:47 250 MLS/HR Ibuprofen 400 mg Q8HP PRN PO 04/27/25 12:30 04/28/25 06:11 400 MG Examination General: Patient alert and oriented in person, place and time. Patient following commands. HEENT: Normocephalic, atraumatic, moist mucous membranes Respiratory/pulmonary: No chest pain on Palpation Cardiovascular: Normal heart sounds S1 and S2 with no associated murmurs Abdomen: Abdomen nondistended, there is no pain to palpation in any of the abdominal quadrants, no palpable masses. Extremities: There is no peripheral edema present at the lower extremities. Peripheral Pulses: 3+ Radial (R). 3+ Radial (L). 3+ Dorsalis pedis (R). 3+ Dorsalis pedis(L) Skin: No rashes or pruritus, there is no sacral edema present at this time. Neurological: Intact cranial nerves with no focal neurologic deficits laboratory and microbiology Laboratory Tests 04/28/25 05:05 Test 04/28/25 05:05 Range/Units Serum Glucose 135 H 74-106 mg/dL Microbiology Date/Time Source Procedure Growth Status 04/27/25 08:17 Blood Blood Culture - Preliminary NO GROWTH AFTER 24 HOURS OF INCUBATION. Resulted 04/25/25 09:28 Nose MRSA Screen - Final Methicillin Resistant S.aureus Complete Problem List/Assessment/Plan Problem List/Assessment/Plan Pneumonia, likely gram positive/Gram-negative Sepsis, secondary to pneumonia Leukocytosis, secondary to above -Blood cultures: Preliminary: Growth of coagulase negative Staphylococcus -Vancomycin IV 1 g q4h -Ceftriaxone IV -Azithromycin IV discontinued -Chest x-ray: Bilateral lung base infiltrates and effusions likely due to multifocal pneumonia. -COVID negative -MRSA + Nare Swab --Mupirocin ointment in each nare bid -Pending Sputum culture -blood cultures shows Staph. epidermidis Acute hypoxic respiratory failure -Tolerating Room air Acute Chest pain, likely due to pneumonia -Ibuprofen p.o. 400 mg q8 prn Uncontrolled type 2 diabetes with hyperglycemia, HbA1c: 7.8 -Lantus 10 units -SSI -diabetic diet Hypertension -continue home medications Hypokalemia -Potassium Effervescent Tablet PO 50 mEq -Resolved Constipation: -Miralax PO 17 gm powder Obesity: BMI: 36.3 kg/m2 DVT prophylaxis with Lovenox. Case discussed with Dr. Field. Goals of care discussed with patient for 16 minutes, who refers understanding of current diagnosis and plan. Full code. Plan discussed with: Patient Dietary Evaluation Review Recommendations by RD: Dietary education by RD, Protein Supplementation Comments: 1) Add cardiac restriction to 45g CCHO diet 2) Initiate Glucerna qd. Encourage optimal PO intake 3) Consider stool softener/laxative to promote BM 4) Refer to outpatient RD/[facility] for diabetes education and weight management 5) Follow-up with cardiology, pulmonlology, and nephrology 6) Continue to monitor I&O, labs, and skin integrity Expected Outcomes/Goals: 1) appetite and labs to improve 2) f/u in 3-5 days Date of Service: Apr 28, 2025 Billing Provider: RAMONA FIELD MD Common Visit Codes: [id number] INP/OBS CARE(HIGH) MARK GALVAN RESIDENT Apr 28, 2025 10:16 RAMONA FIELD MD Apr 28, 2025 21:18
[2025-04-28] MEDS: VANCOMYCIN 1GM/200ML PM 200 ML IV SCH (11:11)
[2025-04-28] MEDS: OXYCODONE W/ ACETAMINOPHEN 5/325MG TABLET PO ONE (16:13)
[2025-04-29] VITALS (7 sets, daily range): BP systolic 121–148; BP diastolic 62–89; PULSE 82–104; RESP 17–20; TEMP 36.6; O2SAT 91–94
[2025-04-29 08:51] LABS: Mean Corpuscular Hemoglobin 29.4 pg (28.0-32.0)
[2025-04-29 08:53] LABS: Hematocrit 43.0 % (41.0-53.0); Hemoglobin 14.4 g/dL (13.5-17.5); Mean Corpuscular Volume 87.8 fL (80.0-100.0); Nucleated Red Blood Cells % 0.1 %
[2025-04-29] MEDS ORDERED: INSLANTI SC (09:48)
[2025-04-29] MEDS ORDERED: INSREGI SC (09:48)
[2025-04-29] MEDS ORDERED: NIFE1TAB31 PO (09:48)
[2025-04-29] MEDS ORDERED: DOXY-346 PO (09:48)
[2025-04-29] MEDS ORDERED: AUG875T PO (09:48)
[2025-04-29] MEDS ORDERED: LISI10TA34 PO (09:48)
--- NOTE | 2025-04-29 13:09 | DVHDSRES ---
Discharge Summary Date of Admission Resident Creating Document: MARK GALVAN Apr 24, 2025 at 19:52 Date of Discharge: Apr 29, 2025 Admitting Diagnosis Pneumonia Labs/Diagnostic Data: Laboratory Results Test 04/29/25 11:08 04/29/25 08:29 04/28/25 09:00 04/28/25 05:05 POC Glucose 274 mg/dl (70-106) White Blood Count 14.0 10^3/uL (4.4-10.8) Red Blood Count 4.90 10^6/uL (4.5-5.90) Hemoglobin 14.4 g/dL (13.5-17.5) Hematocrit 43.0 % (41.0-53.0) Mean Corpuscular Volume 87.8 fL (80.0-100.0) Mean Corpuscular Hemoglobin 29.4 pg (28.0-32.0) Mean Corpuscular Hemoglobin Concent 33.5 g/dL (32.0-36.0) Red Cell Distribution Width 14.5 % (11.8-14.3) Platelet Count 439 10^3/uL (140-450) Mean Platelet Volume 7.9 fL (6.9-10.8) Neutrophils (%) (Auto) 73.9 % (37.0-80.0) Lymphocytes (%) (Auto) 9.7 % (10.0-50.0) Monocytes (%) (Auto) 12.9 % (0.0-12.0) Eosinophils (%) (Auto) 3.0 % (0.0-7.0) Basophils (%) (Auto) 0.5 % (0.0-2.0) Neutrophils # (Auto) 10.4 10 ^3/uL (1.6-8.6) Lymphocytes # (Auto) 1.4 10 ^3/uL (0.4-5.4) Monocytes # (Auto) 1.8 10 ^3/uL (0-1.3) Eosinophils # (Auto) 0.4 10 ^3/uL (0-0.8) Basophils # (Auto) 0.1 10 ^3/uL (0-0.2) Nucleated Red Blood Cells 0.1 % Creatinine 1.01 mg/dL (0.700-1.30) Glomerular Filtration Rate Calc 81 mL/min (>90) Influenza Type A Antigen Negative (Negative) Influenza Type B Antigen Negative (Negative) Sodium Level 137 mmol/L (136-145) Potassium Level 3.5 mmol/L (3.5-5.1) Chloride Level 100 mmol/L (98-107) Carbon Dioxide Level 24 mmol/L (20-31) Anion Gap 13 (5-15) Blood Urea Nitrogen 17 mg/dL (9-23) BUN/Creatinine Ratio 15.6 (10.0-20.0) Serum Glucose 135 mg/dL (74-106) Calcium Level 9.3 mg/dL (8.7-10.4) Test 04/27/25 21:48 04/25/25 09:30 04/25/25 05:27 04/24/25 17:30 Vancomycin Level Trough 11.6 ug/mL (5-10) SARS-CoV-2 Antigen (Rapid) Negative (NEGATIVE) Hemoglobin A1c 7.8 % A1C (<5.7) B-Type Natriuretic Peptide 4.96 pg/mL (0-100) Thyroid Stimulating Hormone (TSH) 1.20 uIU/mL (0.55-4.78) Lactic Acid Level 1.6 mmol/L (0.4-2.0) Test 04/24/25 16:30 04/24/25 12:07 Troponin I High Sensitivity 8 ng/L (</=54) Urine Color Light-orange (Yellow) Urine Clarity Clear (Clear) Urine pH 6.0 (5.0-9.0) Urine Specific [place] 1.029 (1.001-1.035) Urine Protein 2+ (Negative) Urine Ketones Trace (Negative) Urine Blood 2+ /uL (Negative) Urine Nitrite Negative (Negative) Urine Bilirubin Negative (Negative) Urine Urobilinogen Normal mg/dL (Negative) Urine Leukocyte Esterase Negative /uL (Negative) Urine RBC 1 /hpf (0 - 3) Urine Microscopic WBC 3 /HPF (0-3) Urine Squamous Epithelial Cells Few /hpf (<5) Urine Bacteria None seen /hpf (None Seen) Urine Granular Casts Mod /lpf (0) Urine Mucus Few (None Seen) Urine Glucose 4+ mg/dL (Normal) Other Laboratory Tests 04/29/25 08:29 04/28/25 05:05 Brief Hx & Hospital Course: Patient is a 69-year-old male with prior medical history of type 2 diabetes, hypertension, and dyslipidemia, who presented to the ED with chief complaint of elevated blood sugar. [place] and and has been in the area for the last 2 months due to a family crisis and for this reason has not been able to see his PCP for management. In the ED, patient began to complain of chest pain, located in center of chest, pressure like pain, non-radiating, with no associated exacerbating or relieving factors. At this time patient stated that for the last 2 weeks he has presented shortness of breath with minimal activity, generalized body aches, malaise, cough, febrile sensation and chills. He denied other symptoms. On evaluation patient was found to be in mild distress, tachycardic and febrile. Twelve lead EKG in ED positives were sinus tachycardia and troponins negative. Labs Show WBC at 19.6, lactic acid at 1.6, and serum glucose at 255. Chest x-ray shows lung base infiltrates and effusions likely due to multifocal pneumonia. Patient admitted for further monitoring and antibiotic treatment. He was started on IV azithromycin, IV ceftriaxone, and insulin for glycemic control. Patient was started on oxygen via nasal cannula, which had to be increased due in increased shortness of breath. Nasal swab cultures came back positive for MRSA and blood cultures were positive for S. epidermidis. Azithromycin was discontinued and IV Vancomycin was initiated. He progressed favorably, was successfully tapered off oxygen, blood glucose levels are controlled, most recent blood cultures are negative, appetite has returned, and both shortness of breath and generalized body aches have improved. On evaluation today, patient was found stable for discharge home with orders to continue antibiotic therapy at home with PO doxycycline and augmentin, and insulin for glycemic control until he follows up with his PCP in [place]. Operations or Procedures EXAM: XY CHEST TWO VIEWS ROUTINE HISTORY: CP COMPARISON: None TECHNIQUE: Frontal and lateral views of the chest were performed. FINDINGS: There are bilateral lung base infiltrates and effusions. No pneumothorax or pulmonary edema. Cardiac margins are obscured. No fractures are identified about the bony thorax. IMPRESSION: Bilateral lung base infiltrates and effusions likely due to multifocal pneumonia. Condition at Discharge: Stable Final Diagnosis/Problems List Pneumonia, likely gram positive/Gram-negative Sepsis, secondary to pneumonia Leukocytosis, secondary to above Acute hypoxic respiratory failure, likely due to pneumonia Acute Chest pain, likely due to pneumonia Uncontrolled type 2 diabetes with hyperglycemia, HbA1c: 7.8 MARCELO on CKD likely due to VMN Hypertension Hypokalemia Constipation Discharge Disposition: Home Discharge Instruct/Medications Diet: Consistent carbohydrate Activity: No Restrictions, As Tolerated Follow Up/Referral: Follow up with PCP within 1-2 weeks Medications: Augmentin Doxycycline Lantus Insulin regular Lisinopril Nifedipine Scheduled Amoxicillin & Pot Clavulanate (Augmentin Tablet), 875 MG PO BID Doxycycline (Monohydrate) (Doxycycline), 100 MG PO BID Insulin Glargine (Lantus), 10 UNITS SC HS Insulin Regular (Human) (Novolin R), 6 UNITS SC Q6HR Lisinopril (Lisinopril), 10 MG PO DAILY Nifedipine (Nifedipine Er), 60 MG PO DAILY Discharge Statement: "Patient was advised to return to the ER or call 911 if any headaches, dizziness, shortness of breath, chest pain, abdominal pain, bleeding, fevers, or worsening of medical condition. Patient was counseled about treatment plan, medications, possible side effects, patientverbalized understanding. All questions were answered to the best of my ability. This discharge took greater then 30 minutes in planning, reviewing documentation, counseling the patient, and discussing with other team members." ASSESSMENT ASSESSMENT Assessment Pneumona, likely gram positive/gram negative Date of Service: Apr 29, 2025 Billing Provider: RAMONA FIELD MD Common Visit Codes: 45474-FJO/OBS DISCH DAY >30min ISHA PETERSON RESIDENT Apr 29, 2025 13:09 RAMONA FIELD MD Apr 30, 2025 20:21
== END 2025-04-29 14:30 | disposition home or self-care (01) | DRG 871 ==
LOC: ER 11:41 → OVERFLOW 19:52 → TELE-CENTR 22:13 → CENTRAL 04-25 20:17
PROVIDERS: ADMIT Student in an Organized Health Care Education/Training Program; ATTEND Student in an Organized Health Care Education/Training Program
DX: A41.59 Other Gram-negative sepsis (principal); J15.69 Pneumonia due to other Gram-negative bacteria; J96.01 Acute respiratory failure with hypoxia; J15.9 Unspecified bacterial pneumonia; N18.9 Chronic kidney disease, unspecified; E11.22 Type 2 diabetes mellitus with diabetic chronic kidney disease; I12.9 Hypertensive chronic kidney disease with stage 1 through stage 4 chronic kidney disease, or unspecified chronic kidney disease; E11.65 Type 2 diabetes mellitus with hyperglycemia; E87.6 Hypokalemia; F17.210 Nicotine dependence, cigarettes, uncomplicated; E78.5 Hyperlipidemia, unspecified; Z20.822 Contact with and (suspected) exposure to COVID-19; E66.9 Obesity, unspecified; K59.00 Constipation, unspecified; Z83.3 Family history of diabetes mellitus; Z68.36 Body mass index [BMI] 36.0-36.9, adult; Z79.899 Other long term (current) drug therapy; Z82.49 Family history of ischemic heart disease and other diseases of the circulatory system
CPT/HCPCS: 36415; 71046; 80048; 80202; 81001; 82565; 82962; 83036; 83605; 83880; 84132; 84443; 84484; 85025; 87040; 87077; 87081; 87186; 87426; 87804; 93005; 94640; 96361; 96365; G0378; J1815; J2470